=== PATIENT | male | born 1940 | race Caucasian/White ===

== ENCOUNTER 2019-04-18 17:12 | Emergency (ER) | payer OTHER ==
[~2019-04-18] VITALS: Ht 177.8 cm; Wt 108.4 kg
[2019-04-18 21:37] VITALS: BP 115/74
== END 2019-04-18 22:45 | disposition home or self-care (01) ==
LOC: ER 17:35
DX: S41.112A Laceration without foreign body of left upper arm, initial encounter (principal); I48.91 Unspecified atrial fibrillation; E11.9 Type 2 diabetes mellitus without complications; K21.9 Gastro-esophageal reflux disease without esophagitis; E78.5 Hyperlipidemia, unspecified; I10 Essential (primary) hypertension; Z88.8 Allergy status to other drugs, medicaments and biological substances; W20.8XXA Other cause of strike by thrown, projected or falling object, initial encounter; Y93.89 Activity, other specified; Y92.89 Other specified places as the place of occurrence of the external cause; Y99.8 Other external cause status
CPT/HCPCS: 12002

== ENCOUNTER 2019-11-15 10:07 | Inpatient (IN) | payer OTHER ==
[~2019-11-15] VITALS: Ht 188 cm; Wt 102.6 kg
[2019-11-15 10:45] LABS: Basophils # (auto) 0 10 ^3/uL (0-0.2); Basophils % (auto) 0.2 % (0.0-2.0); Eosinophils # (auto) 0 10 ^3/uL (0-0.8); Eosinophils % (auto) 0.4 % (0.0-7.0); Hematocrit 48.6 % (41.0-53.0); Hemoglobin 15.6 g/dL (13.5-17.5); Lymphocytes # (auto) 0.6 10 ^3/uL (0.4-5.4); Lymphocytes % (auto) 5.3 % (10.0-50.0); Mean Corpuscular Hemoglobin 29.1 pg (28.0-32.0); Mean Corpuscular Hgb Conc. 32.1 g/dL (32.0-36.0); Mean Corpuscular Volume 90.6 fL (80.0-100.0); Monocytes # (auto) 0.6 10 ^3/uL (0-1.3); Monocytes % (auto) 5.5 % (0.0-12.0); Neutrophils # (auto) 10.1 10 ^3/uL (1.6-8.6); Neutrophils % (auto) 88.6 % (37.0-80.0); Platelet Count (auto) 184 10^3/uL (140-450); Red Blood Cells 5.37 10^6/uL (4.5-5.90); Red Cell Distribution Width 14.7 % (11.8-14.3); White Blood Cell 11.4 10^3/uL (4.4-10.8)
[2019-11-15 11:02] LABS: INR 1.18 (0.9-1.15); Partial Thromboplastin Time 31.6 sec (23.0-31.2)
[2019-11-15 11:03] LABS: Albumin 3.2 g/dL (3.4-5.0); Anion Gap 7 (5-15); Blood Urea Nitrogen 10 mg/dL (7-18); Calcium 8.5 mg/dL (8.5-10.1); Carbon Dioxide 28 mmol/L (21-32); Chloride 101 mmol/L (98-107); Glucose 114 mg/dL (74-106); Potassium 3.9 mmol/L (3.5-5.1); Sodium 136 mmol/L (136-145)
[2019-11-15 11:11] LABS: Alanine Aminotransferase 14 U/L (16-61); Alkaline Phosphatase 94 U/L (45-117); Aspartate Aminotransferase 11 U/L (15-37); BUN/Creatinine Ratio 12.7; Bilirubin, Total 1.1 mg/dL (0.2-1.0); GFR African American 122 mL/min; GFR Non-African American 101 mL/min; Lactate Dehydrogenase 181 U/L (87-241)
[2019-11-15] MEDS ORDERED: cefTRIAXone 1GM/50ML D5W 50 ML IV ONE (11:30)
[2019-11-15] MEDS ORDERED: FUROSEMIDE 20 MG/2 ML VIAL IV ONE (11:30)
[2019-11-15 12:46] LABS: Urine WBC None Seen /hpf (0 - 3)
[2019-11-15 12:53] LABS: Urine Bacteria FEW /hpf (None Seen); Urine Blood TRACE /uL (Negative); Urine Mucus MODERATE (None Seen)
[2019-11-15] MEDS ORDERED: DEXTROSE (50%) 50ML SYRG IV PRN (13:15)
[2019-11-15] MEDS ORDERED: NITROGLYCERIN 0.4 MG SL TAB SL PRN (13:15)
[2019-11-15] MEDS ORDERED: MORPHINE SULF INJ 2 MG/ML SYRINGE 1ML IV PRN (13:15)
[2019-11-15] MEDS ORDERED: ACETAMINOPHEN 500 MG TAB PO PRN (13:15)
[2019-11-15] MEDS ORDERED: KETOROLAC TROMETH 60MG/2ML VIAL IM PRN (13:15)
[2019-11-15] MEDS ORDERED: LABETALOL HCL 5 MG/ML 4ML SYRINGE IV PRN (13:15)
[2019-11-15] MEDS: SODIUM CHLORIDE 0.9% 1,000 ML IV SCH ×2 (13:35→17:36)
[2019-11-15] MEDS ORDERED: ALBUTEROL SULF HFA 90MCG INH 200DOSE IN SCH (14:00)
--- NOTE | 2019-11-15 15:15 | NUR ---
Telemetry admit from ER RADHA BLOOD admitted to Telemetry unit after SBAR received. Patient oriented to MAGDY WILLIAMSON, primary RN, unit, room, bed, and unit policies regarding patient care and visiting hours. Patient now on continuous telemetry monitoring, tele box # 14 and telemetry reading on arrival to unit is 101 AFIB Patient placed on bedside oxygen 2l weighed by bedscale and encouraged to call if they need something. All questions and concerns addressed, patient verbalized understanding. Bed alarm on.
[2019-11-15] MEDS: ACCU-CHEK COMFORT CURVE STRIP VI SCH ×2 (16:00→21:35)
[2019-11-15] MEDS: InsuLIN REG 1unit/0.01ml Soln (100units/ml) SC SCH ×2 (16:00→21:35)
[2019-11-15] MEDS ORDERED: ACCU-CHEK COMFORT CURVE STRIP VI SCH (16:00)
[2019-11-15] MEDS ORDERED: PANT40T PO (16:27)
[2019-11-15] MEDS ORDERED: SIMV-13 PO (16:27)
[2019-11-15] MEDS ORDERED: FLUO20CA90 PO (16:27)
[2019-11-15] MEDS ORDERED: CEPH250C2 PO (16:27)
[2019-11-15] MEDS ORDERED: ALPR1TAB7 PO (16:27)
[2019-11-15] MEDS ORDERED: DABI1CAP PO (16:27)
[2019-11-15] MEDS ORDERED: TAMS0.4C36 PO (16:27)
[2019-11-15] MEDS ORDERED: MET25T PO (16:31)
--- NOTE | 2019-11-15 16:45 | NUR ---
SPOKE WITH TO GET HISTORY AND MED LIST. PER PATIENT GETS ANXIOUS AND PERINOID AT NIGHT, PATIENT IS NOT COMBATIVE; ALPRAZOLAM EFFECTIVE HS TO CALM PATIENT. PAGED HOSPITALIST FOR ORDERS TO RESUME.
--- NOTE | 2019-11-15 16:47 | NUR ---
HOSPITALIST RETURNED CALL OKAY TO RESUME HOME MEDICATIONS
[2019-11-15 17:00] VITALS: BP 148/93
[2019-11-15] MEDS ORDERED: CEPHALEXIN 250 MG CAP PO ONE (17:00)
[2019-11-15] MEDS: hydrALAZINE HCL 20 MG/ML VL IV SCH (17:36)
--- NOTE | 2019-11-15 19:10 | NUR ---
endorsed care to night rn
--- NOTE | 2019-11-15 20:25 | NUR ---
TRANSFER TO [facility] PT TAKEN TO OUTSIDE ANTE ROOM TO RYAN RN VIA BED ALL BELONGING TAKEN WITH PT.PT IS AOX2 ON ROOM AIR , NO S/S OF DISTRESS OR SOB AND NO INCIDENT DURING TIME OF TRANSFER
--- NOTE | 2019-11-15 20:26 | NUR ---
Patient transfer to room 205. Assumed care of patient, awake but confused, alert to self and situation only. Bed is in lowest position and locked. Call light within reach. Board updated. Tele box matches monitor and leads are in correct placement. No S/S of distress/SOB or pain. Instructed on POC and to call for assist PRN, will continue to monitor for changes Q1hr and PRN.
[2019-11-15 20:40] VITALS: BP 132/78
--- NOTE | 2019-11-15 21:35 | NUR ---
Held Insulin for patient because patient's blood glucose is 133 mg/dl and patient has had poor appetite. Previous result was 131 mg/dl. Will reassess at 0000.
[2019-11-15] MEDS: DOXYCYCLINE 100 MG TAB/CAP PO SCH (21:37)
[2019-11-15] MEDS: ALPRAZolam 0.5 MG TAB PO PRN (21:37)
[2019-11-15 21:40] VITALS: BP 132/78
--- NOTE | 2019-11-15 22:01 | NUR ---
patient's , Galileo, called and I gave her a brief update on patient's status and plan of care after confirming password.
--- NOTE | 2019-11-15 23:59 | NUR ---
Paging hospitalist to notify of increasing Atrial fibrillation rate and home Metoprolol use for atrial fibrillation. Patient takes Metoprolol 25 mg PO Daily at home. Atrial fibrillation on arrival was in high 90s now it is in the high 100s. Patient is asymptomatic, however.
--- NOTE | 2019-11-16 00:42 | NUR ---
Spoke to CAIO Najera and notified him that BP is 109/69 as well. Per CAIO Najera, continue to monitor only.
[2019-11-16] MEDS: ACCU-CHEK COMFORT CURVE STRIP VI SCH ×6 (00:51→23:50)
[2019-11-16] MEDS: hydrALAZINE HCL 20 MG/ML VL IV SCH ×5 (00:51→23:49)
[2019-11-16] MEDS: InsuLIN REG 1unit/0.01ml Soln (100units/ml) SC SCH ×6 (00:51→23:49)
--- NOTE | 2019-11-16 03:20 | NUR ---
Patient pulled out IV and started ripping off his gown and leads, confused regarding where he was. I tried to reorient patient but patient is still restless and pulling. 22 gauge IV catheter placed in left forearm after one attempt. IV secured and wrapped with Tegaderm. Mittens placed on patent's hands to determine pulling on lines and telemetry leads.
[2019-11-16 04:45] VITALS: BP 141/82
[2019-11-16 07:02] LABS: Basophils # (auto) 0 10 ^3/uL (0-0.2); Basophils % (auto) 0.3 % (0.0-2.0); Eosinophils # (auto) 0.2 10 ^3/uL (0-0.8); Eosinophils % (auto) 1.6 % (0.0-7.0); Hematocrit 44.3 % (41.0-53.0); Hemoglobin 14.8 g/dL (13.5-17.5); Lymphocytes # (auto) 0.9 10 ^3/uL (0.4-5.4); Lymphocytes % (auto) 8.3 % (10.0-50.0); Mean Corpuscular Hemoglobin 30.2 pg (28.0-32.0); Mean Corpuscular Hgb Conc. 33.5 g/dL (32.0-36.0); Mean Corpuscular Volume 90.2 fL (80.0-100.0); Monocytes # (auto) 0.9 10 ^3/uL (0-1.3); Monocytes % (auto) 8.1 % (0.0-12.0); Neutrophils # (auto) 8.7 10 ^3/uL (1.6-8.6); Neutrophils % (auto) 81.7 % (37.0-80.0); Nucleated Red Blood Cells % 0.1 %; Platelet Count (auto) 179 10^3/uL (140-450); Red Blood Cells 4.91 10^6/uL (4.5-5.90); Red Cell Distribution Width 14.5 % (11.8-14.3); White Blood Cell 10.6 10^3/uL (4.4-10.8)
[2019-11-16 07:09] LABS: Potassium 3.5 mmol/L (3.5-5.1)
[2019-11-16 07:15] LABS: Albumin 2.7 g/dL (3.4-5.0); BUN/Creatinine Ratio 18.1; Calcium 8.4 mg/dL (8.5-10.1)
[2019-11-16 07:24] LABS: Bilirubin, Total 1.1 mg/dL (0.2-1.0); CRP High Sensitivity 11.1 mg/dL (< 0.3); Total Protein 6.4 g/dL (6.4-8.2)
[2019-11-16 08:45] VITALS: BP 126/61
[2019-11-16] MEDS ORDERED: cefTRIAXone 1GM/50ML D5W 50 ML IV SCH (09:00)
[2019-11-16] MEDS ORDERED: ASCORBIC ACID 1,000 MG TAB PO SCH (10:00)
[2019-11-16] MEDS ORDERED: ZINC SULFATE 220mg CAP or TAB PO SCH (10:00)
[2019-11-16] MEDS ORDERED: CHOLECALCIFEROL (VITD3) 2,000 UNIT CAP PO SCH (10:00)
[2019-11-16] MEDS: DOXYCYCLINE 100 MG TAB/CAP PO SCH (10:00)
[2019-11-16] MEDS ORDERED: levoFLOXacin 500MG 100 ML IV SCH (10:00)
--- NOTE | 2019-11-16 10:18 | NUR ---
Assessment Patient is a 79-year old male who is confused. Assessment was completed with patient Rachael . Per Rachael Prior to admission patient lived home with her and functioned with assistance. Per Rachael she helps patient with his ADLs. Per Rachael patient has a walker, walker with seat and wheelchair for home use. Per Rachael patient does not have home oxygen. Due to patient hospitalization patient Rachael was offered different post discharge plan such as private care givers, [facility] nursing facility and home health. Per Rachael she would like patient to return home with home health service. Informed Rachael she has a right to participate in all discharge planning. Rachael verbalized understanding. Addendum: 11/16/19 at 1018 by CYNTHIA VILLAVICENCIO Amended: Links added.
[2019-11-16] MEDS: PANTOPRAZOLE 40 MG TAB PO SCH (10:58)
[2019-11-16] MEDS: ENOXAPARIN SOD 40 MG/0.4 ML SYRINGE SC SCH (10:58)
[2019-11-16] MEDS: CEPHALEXIN 250 MG CAP PO SCH (10:58)
[2019-11-16] MEDS: FLUoxetine HCL 20 MG CAP PO SCH (10:59)
--- NOTE | 2019-11-16 11:12 | NUR ---
WOUND CARE NOTE: Wound care in to see patient per wound care request regarding " blanchable redness to sacrum, scab to left forearm s/p fall." Bedside nurse took photograph of patient's skin issue upon admission for reference. Patient is 79 years old male with admitting diagnosis of Palpitations, Fever. Patient is resting in bed in Rm. 205. Patient is awake, alert and oriented. He's in no stated pain at this time however mild pain noted upon turning. He needs assistance in turning and repositioning and his Cr score is 16. Skin assessment done with the assistance of patient's nurse, DMITRI Encarnacion. Patient noted with dry scabbed wound to distal L forearm, nurse applied protective Opti foam gentle dressing. Patient's medial sacral,buttocks noted with intact skin with blanchable bright redness consistent with moisture associated dermatitis. Patient is incontinent and wet the care pad. Tammy care given and applied Z Guard cream. Patient tolerated well, repositioned for comfort on his back, redistributed pressure points with pillows. DMITRI Encarnacion at bedside. RECOMMENDATION: Nursing to continue with BID/PRN cleaning and application of Barrier cream to sacral, buttocks per MD order,frequent turning and repositioning schedule as condition permits, redistribute pressure points with pillows, elevate heels on pillows, frequent tammy check/care, keep clean and dry, continue monitoring by wound care while patient is hospitalized. Addendum: 11/16/19 at 1612 by Shireen Rg RN Amended: Links added.
[2019-11-16 13:00] VITALS: BP 117/70
[2019-11-16] MEDS ORDERED: cefTRIAXone 1GM/50ML D5W 50 ML IV ONE (13:15)
[2019-11-16] MEDS ORDERED: AZITHROMYCIN 500MG/ 250ML 250 ML IV ONE (13:15)
--- NOTE | 2019-11-16 14:20 | NUR ---
Braulio MANUEL AT BEDSIDE. INFORMED OF PATIENT STATUS. NO NEW ORDERS RECEIVED.
--- NOTE | 2019-11-16 14:29 | NUR ---
RECIEVED VERBAL CONSENT FROM DMITRI MADRIGAL PRESENT AND SPOKE TO WITNESS.
--- NOTE | 2019-11-16 14:58 | NUR ---
called down to radiology and informed patient is ready for CT studies.
--- NOTE | 2019-11-16 15:20 | NUR ---
Nutrition Consult/assessment Notes please see attached link for complete assessment [employer] needs BW 104 [id number] kcals (20-23 kcal/kgBW), Est Protein needs: 104-114 gms/day (1.0-1.1 gm/kgBW). Will continue to monitor and reassess prn. Addendum: 11/16/19 at [address] Amended: Links added.
[2019-11-16] MEDS ORDERED: IOHEXOL 350 MG/ML 100ML IJ ONE (16:50)
[2019-11-16 17:00] VITALS: BP 145/103
--- NOTE | 2019-11-16 17:00 | NUR ---
PATIENT WHEELED DOWN FOR SCHEDULED CT STUDIES BY CROZE CUTTER. NO S/S DISTRESS NOTED AT THIS TIME.
[2019-11-16] MEDS: TAMSULOSIN HYDROCHLORIDE 0.4 MG CAP PO SCH (17:47)
--- NOTE | 2019-11-16 20:12 | NUR ---
Spoke to patient's , Rachael, and gave an update on plan of care after confirming password.
[2019-11-16] MEDS: METOPROLOL TARTRATE 25 MG TAB PO SCH (21:19)
[2019-11-16] MEDS: ALPRAZolam 0.5 MG TAB PO PRN (21:20)
[2019-11-16 21:54] VITALS: BP 146/78
--- NOTE | 2019-11-16 22:03 | NUR ---
Paged hospitalist to request nausea medication. Patient has not vomited but says that he feels nauseous and cannot eat. Awaiting call back.
--- NOTE | 2019-11-16 22:38 | NUR ---
Spoke to CAIO Najera. Order received: Ondansetron 4 mg IV q 6 hrs PRN nausea/vomiting. Order repeated, verified, and placed.
[2019-11-17] MEDS ORDERED: ONDANSETRON HCL 4 MG/2 ML VIAL IV PRN (02:15)
[2019-11-17] MEDS: MORPHINE SULFATE 4 MG/ML SYR/VIAL IV PRN ×3 (04:04→23:37)
[2019-11-17 05:00] VITALS: BP 128/77
--- NOTE | 2019-11-17 05:45 | NUR ---
Withholding insulin per sliding scale for blood glucose of 134 mg/dl. Patient's has been reporting nausea and has not eaten any substantial meal for the last 12 hours.
[2019-11-17] MEDS: InsuLIN REG 1unit/0.01ml Soln (100units/ml) SC SCH ×3 (05:46→18:00)
[2019-11-17] MEDS: ACCU-CHEK COMFORT CURVE STRIP VI SCH ×3 (05:47→18:00)
[2019-11-17] MEDS: hydrALAZINE HCL 20 MG/ML VL IV SCH ×3 (05:48→18:00)
[2019-11-17 08:00] VITALS: BP 109/63
[2019-11-17] MEDS: cefTRIAXone 1GM/50ML D5W 50 ML IV SCH (08:49)
[2019-11-17 09:00] VITALS: BP 109/63
[2019-11-17] MEDS: PRADAXA 110 MG PO SCH (10:00)
[2019-11-17] MEDS: AZITHROMYCIN 500MG/ 250ML 250 ML IV SCH (10:37)
[2019-11-17] MEDS: FLUoxetine HCL 20 MG CAP PO SCH (10:40)
[2019-11-17] MEDS: PANTOPRAZOLE 40 MG TAB PO SCH (10:41)
[2019-11-17] MEDS: CEPHALEXIN 250 MG CAP PO SCH (10:41)
[2019-11-17] MEDS: ENOXAPARIN SOD 40 MG/0.4 ML SYRINGE SC SCH (10:42)
[2019-11-17] MEDS: METOPROLOL TARTRATE 25 MG TAB PO SCH ×2 (11:08→22:00)
--- NOTE | 2019-11-17 12:00 | NUR ---
HELD SCHEDULED HYDRALAZINE, BP IS 129/64. WILL CONTINUE TO MONITOR FOR CHANGES
--- NOTE | 2019-11-17 12:30 | NUR ---
HELD INSULIN PER SLIDING SCALE FOR BLOOD GLUCOSE OF 176mg/dL. Patient has poor appetite and not consuming adequate amount of meal at this time. will continue to offer snacks and encourage to eat more.
[2019-11-17 12:36] VITALS: BP 129/64
[2019-11-17 16:31] VITALS: BP 122/71
[2019-11-17] MEDS: TAMSULOSIN HYDROCHLORIDE 0.4 MG CAP PO SCH (18:00)
--- NOTE | 2019-11-17 18:58 | NUR ---
pharmacy notified that flomax is not available in xis. Pharmacy staff confirms to review order and make available.
--- NOTE | 2019-11-17 19:02 | NUR ---
Flomax still not available in the pyxis. unable to administer evening dose.
[2019-11-17 22:07] VITALS: BP 151/87
[2019-11-17] MEDS: ALPRAZolam 0.5 MG TAB PO PRN (23:37)
--- NOTE | 2019-11-17 23:57 | NUR ---
1899. REPORT OBTAINED ON PATIENT. 1919 PATIENT SEEN. LYING SUPINE IN BED. AWAKE ALERT AND CONFUSED. SPEECH UNCOORDINATED. REASSURED.
--- NOTE | 2019-11-17 23:59 | NUR ---
2325. PATIENT COMPLAINED OF PAIN. DEMANDED TO DRESS UP AND GO HOME. PATIENT REASSURED AND TOLD IT IS TOO LATE TO GO HOME.. 2337. MEDICATED FOR PAIN. LOW BACK. SLEEPING PILL GIVEN. XANAX.
--- NOTE | 2019-11-18 | NUR ---
0000. MONITORING PATIENT. BEGINNING TO SLEEP.
--- NOTE | 2019-11-18 02:03 | NUR ---
PATIENT NOW AWAKE. ASKING TO GO HOME. WAS REORIENTED IN RESPECT OF TIME AND ORDERS.
[2019-11-18 05:00] VITALS: BP 146/103
[2019-11-18] MEDS: hydrALAZINE HCL 20 MG/ML VL IV SCH ×4 (05:36→18:00)
[2019-11-18] MEDS: ACCU-CHEK COMFORT CURVE STRIP VI SCH ×4 (05:37→18:22)
[2019-11-18] MEDS: InsuLIN REG 1unit/0.01ml Soln (100units/ml) SC SCH ×4 (05:37→18:00)
[2019-11-18] MEDS: MORPHINE SULFATE 4 MG/ML SYR/VIAL IV PRN ×2 (05:45→18:40)
--- NOTE | 2019-11-18 07:40 | NUR ---
RECEIVED PATIENT FROM NOC SHIFT RN, AWAKE, A/O 1-2, APPEARS MORE CONFUSED AND RESTLESS, WANTING TO GET OUT OF BED. DENIES PAIN AT THIS TIME, NO SOB NOTED. PLAN OF CARE DISCUSSED BUT UNCLEAR IF PATIENT UNDERSTANDS. BED IN LOW AND LOCKED POSITION, WILL CONTINUE TO MONITOR Q1HR AND PRN. SITTER AT BEDSIDE
[2019-11-18 08:00] VITALS: BP 122/78
[2019-11-18] MEDS: cefTRIAXone 1GM/50ML D5W 50 ML IV SCH (08:44)
[2019-11-18 09:00] VITALS: BP 122/78
[2019-11-18] MEDS: PRADAXA 110 MG PO SCH (10:00)
--- NOTE | 2019-11-18 10:20 | NUR ---
PRADAXA NOT AVAILABLE, WILL BE BROUGHT IN BY FAMILY LATER. PHARMACY AWARE
[2019-11-18] MEDS: AZITHROMYCIN 500MG/ 250ML 250 ML IV SCH (11:02)
[2019-11-18] MEDS: FLUoxetine HCL 20 MG CAP PO SCH (11:02)
[2019-11-18] MEDS: PANTOPRAZOLE 40 MG TAB PO SCH (11:02)
[2019-11-18] MEDS: ENOXAPARIN SOD 40 MG/0.4 ML SYRINGE SC SCH (11:02)
[2019-11-18] MEDS: METOPROLOL TARTRATE 25 MG TAB PO SCH ×2 (11:17→22:10)
--- NOTE | 2019-11-18 12:30 | NUR ---
HELD HYDRALAZINE. BLOOD PRESSURE IS 111/66, HR 73. PATIENT NOT EATING ADEQUATE AMOUNT OF MEALS.
--- NOTE | 2019-11-18 12:55 | NUR ---
WILL HOLD INSULIN FOR BLOOD GLUCOSE OF 132mg/dL. PATIENT NOT EATING ADEQUATE AMOUNT OF MEAL.
[2019-11-18 13:12] VITALS: BP 111/66
--- NOTE | 2019-11-18 16:20 | NUR ---
FAMILY BROUGHT PRADAXA, IT IS SENT TO PHARMACY.
[2019-11-18 16:45] VITALS: BP 131/85
--- NOTE | 2019-11-18 18:00 | NUR ---
PATIENT STILL EXHIBIT POOR APPETITE, NOT EATING HIS MEALS, EVEN FOOD BROUGHT BY FAMILY. WILL CONTINUE TO ENCOURAGE PATIENT TO EAT.
[2019-11-18] MEDS: TAMSULOSIN HYDROCHLORIDE 0.4 MG CAP PO SCH (18:41)
--- NOTE | 2019-11-18 19:34 | NUR ---
Opening Shift Note Received report and assumed care of patient. Patient is awake and confused. No signs or symptoms of distress noted. Instructed patient on plan of care and to call for assistance as needed. Patient is confused and needs to be reoriented, teaching reinforced. Sitter at bedside. Will continue to monitor.
[2019-11-18 21:03] VITALS: BP 145/80
[2019-11-18] MEDS ORDERED: LORazepam 2MG/ML-1ML VIAL IV PRN (21:15)
[2019-11-18] MEDS ORDERED: MIDAZOLAM HCL 1MG/1ML-2 ML VIAL IV PRN (21:30)
[2019-11-18 21:51] LABS: Cholesterol 139 mg/dL (< 200); HDL Cholesterol 48 mg/dL (40-59); LDL Cholesterol 80 mg/dL (< 100); Triglycerides 97 mg/dL (< 150)
[2019-11-18] MEDS: ATORVASTATIN 20 MG TAB PO SCH (22:09)
[2019-11-19] MEDS: HALOPERIDOL LACTATE 5 MG/ML INJ VIAL IM PRN ×2 (00:45→10:14)
--- NOTE | 2019-11-19 00:45 | NUR ---
Haldol Administered Patient is confused and agitated. Haldol administered at this time. Sitter at bedside. Will continue to monitor.
[2019-11-19] MEDS: hydrALAZINE HCL 20 MG/ML VL IV SCH ×4 (00:47→17:47)
[2019-11-19] MEDS: ACCU-CHEK COMFORT CURVE STRIP VI SCH ×4 (00:47→17:53)
[2019-11-19 05:18] VITALS: BP 155/89
[2019-11-19] MEDS: InsuLIN REG 1unit/0.01ml Soln (100units/ml) SC SCH ×4 (06:00→17:53)
--- NOTE | 2019-11-19 06:00 | NUR ---
Insulin Held Blood sugar 141. Held insulin due to patient's poor appetite. Patient refusing snacks and refuses to eat. Patient does take small sips of water. Will endorse to day shift nurse and will continue to monitor.
[2019-11-19 06:19] LABS: Basophils # (auto) 0.1 10 ^3/uL (0-0.2); Basophils % (auto) 0.5 % (0.0-2.0); Eosinophils # (auto) 0 10 ^3/uL (0-0.8); Eosinophils % (auto) 0.4 % (0.0-7.0); Hematocrit 43.7 % (41.0-53.0); Hemoglobin 14.9 g/dL (13.5-17.5); Lymphocytes # (auto) 0.6 10 ^3/uL (0.4-5.4); Lymphocytes % (auto) 5.5 % (10.0-50.0); Mean Corpuscular Hemoglobin 30.3 pg (28.0-32.0); Mean Corpuscular Hgb Conc. 33.9 g/dL (32.0-36.0); Mean Corpuscular Volume 89.1 fL (80.0-100.0); Monocytes # (auto) 0.9 10 ^3/uL (0-1.3); Monocytes % (auto) 8.6 % (0.0-12.0); Neutrophils # (auto) 8.7 10 ^3/uL (1.6-8.6); Platelet Count (auto) 239 10^3/uL (140-450); Red Blood Cells 4.91 10^6/uL (4.5-5.90); Red Cell Distribution Width 14.3 % (11.8-14.3); White Blood Cell 10.2 10^3/uL (4.4-10.8)
[2019-11-19 06:39] LABS: Calcium 8.4 mg/dL (8.5-10.1); Potassium 3.1 mmol/L (3.5-5.1)
[2019-11-19 06:45] LABS: Albumin 2.7 g/dL (3.4-5.0); BUN/Creatinine Ratio 20.7; Total Protein 6.3 g/dL (6.4-8.2)
--- NOTE | 2019-11-19 07:25 | NUR ---
Opening Shift Note Assumed care of patient, awake and alert x3. No S/S of distress/SOB or pain noted at this time. Instructed on POC and to call for assist PRN, call light within reach, bed alarm on and bed portioned at its lowest position, IV patent to right FA and right upper FA, will continue to monitor for changes Q1hr and PRN.
[2019-11-19 08:00] VITALS: BP 110/57
[2019-11-19 08:45] VITALS: BP 110/57
--- NOTE | 2019-11-19 09:24 | NUR ---
Weekend assistant professor of education-I received a page 11/16 to call patient's -Galileo ([phone])-she told me that originally she had wanted to bring him home upon discharge, but now she wants him to go to rehab prior to coming home (she is also okay with patient being transferred to [place]). I relayed her wishes/concerns to nurse Henao.
[2019-11-19] MEDS: ENOXAPARIN SOD 40 MG/0.4 ML SYRINGE SC SCH (10:13)
[2019-11-19] MEDS: FLUoxetine HCL 20 MG CAP PO SCH (10:13)
[2019-11-19] MEDS: AZITHROMYCIN 500MG/ 250ML 250 ML IV SCH (10:13)
[2019-11-19] MEDS: PANTOPRAZOLE 40 MG TAB PO SCH (10:13)
[2019-11-19] MEDS: cefTRIAXone 1GM/50ML D5W 50 ML IV SCH (10:13)
[2019-11-19 11:56] LABS: Folate (Folic Acid) 2.85 ng/mL (5.38-24)
--- NOTE | 2019-11-19 12:25 | NUR ---
Nutrition Followup Notes Wt: 99.7 kg Pt was sleeping with no family by beside. per records pt with PNA on ABX. pt is currently on CCHO 75 gm with inadequate PO of < 50% x 2 days per RN doc [employer] needs BW 104 [id number] kcals (20-23 kcal/kgBW), Est Protein needs: 104-114 gms/day (1.0-1.1 gm/kgBW). Will continue to monitor and reassess prn. LABS: GLU 115 H ALB 2.7 L CA 8.4 L GI: Pt has no BM reported constipated per RN doc BS: 17 mod risk Refer to wound assessment report for full details. PES: Altered nutrition related lab values r.t current chronic medical condition aeb mod hypoalb, hyperbil Comments: Will continue to monitor PO status, skin status, pertinent labs and weight trends. Will f/u in 3-5 days. Rec: 1) refer to CDE on DC. 2) continue current plan of care
[2019-11-19] MEDS: DABIGATRAN 110 MG PO SCH (12:38)
[2019-11-19] MEDS: METOPROLOL TARTRATE 25 MG TAB PO SCH ×2 (12:43→22:36)
[2019-11-19 12:54] VITALS: BP 142/93
--- NOTE | 2019-11-19 14:00 | NUR ---
Attempted PT treatment but pt states he does not want to get up due to stomach pain. RN aware.
--- NOTE | 2019-11-19 14:00 | NUR ---
ELECTROENCEPHALOGRAM COMPLETED AT BEDSIDE. PRIMARY RN ALICIA CALERO.
--- NOTE | 2019-11-19 15:25 | NUR ---
MRI NOT DONE SPOKE WITH CARO FROM MRI, STATES PATIENT WILL HAVE MRI DONE IN THE MORNING, CONT CARE
[2019-11-19 17:32] VITALS: BP 139/77
[2019-11-19] MEDS: TAMSULOSIN HYDROCHLORIDE 0.4 MG CAP PO SCH (17:49)
--- NOTE | 2019-11-19 18:15 | NUR ---
DRESSING REMOVED SITE IRRIGATED WITH NS, PADDED DRY WIT STERILE GAUZE, PT TOLERATED WELL, 16 WELL APPROXIMATED MAREN NOTED ACROSS TOP ABDOMEN, NO REDNESS, FOUL ODOR OR DRAINAGE NOTED, RIGHT MID ABD 2 WELL APPROXIMATED MAREN, SITE PINK, NO FOUL ODOR OR DRAINAGE NOTED, 20ML OF DARK SEROSANG NOTED AND DRAINED, CONT CARE Addendum: 11/19/19 at 1932 by Rachel Ingram RN WRONG PT
--- NOTE | 2019-11-19 19:00 | NUR ---
PAGED HEALTH AID HOSPITALIST POTASSIUM 3.1, ENDORSED TO NOC SHIFT
[2019-11-19 22:00] VITALS: BP 141/94
[2019-11-19] MEDS: ATORVASTATIN 20 MG TAB PO SCH (22:35)
[2019-11-19] MEDS: DONEPEZIL HYDROCHLORIDE 5 MG TAB PO SCH (22:35)
[2019-11-19] MEDS: ALPRAZolam 0.5 MG TAB PO PRN (22:37)
[2019-11-20] MEDS: ACCU-CHEK COMFORT CURVE STRIP VI SCH ×4 (00:16→17:57)
[2019-11-20 05:00] VITALS: BP 112/75
[2019-11-20] MEDS: InsuLIN REG 1unit/0.01ml Soln (100units/ml) SC SCH ×4 (06:00→17:58)
[2019-11-20] MEDS: hydrALAZINE HCL 20 MG/ML VL IV SCH ×4 (06:11→18:00)
--- NOTE | 2019-11-20 07:38 | NUR ---
Opening Shift Note Received report and assumed care of patient. Patient is sleeping quietly in bed. No signs or symptoms of distress noted. Pt is on room air with even and unlabored respirations. Bed is in lowest position, wheels locked, side rails up x2, and call light is within reach. Sitter at bedside for safety. Will continue to monitor. Q1h and PRN.
[2019-11-20] MEDS: ALPRAZolam 0.5 MG TAB PO PRN (08:55)
[2019-11-20] MEDS: HYDROcodone-ACET 10/325MG TAB PO PRN (08:55)
[2019-11-20] MEDS: cefTRIAXone 1GM/50ML D5W 50 ML IV SCH (08:56)
[2019-11-20] MEDS: PANTOPRAZOLE 40 MG TAB PO SCH (08:56)
[2019-11-20] MEDS: DABIGATRAN 110 MG PO SCH (08:56)
[2019-11-20] MEDS: ENOXAPARIN SOD 40 MG/0.4 ML SYRINGE SC SCH (08:57)
[2019-11-20 09:00] VITALS: BP 121/65
--- NOTE | 2019-11-20 09:00 | NUR ---
PT off unit for MRI Pt transported off unit via w/c for MRI. Pt alert and awake with even and unlabored respirations at time of transfer.
[2019-11-20] MEDS: FLUoxetine HCL 20 MG CAP PO SCH (10:19)
[2019-11-20] MEDS: METOPROLOL TARTRATE 25 MG TAB PO SCH ×2 (10:19→22:00)
--- NOTE | 2019-11-20 10:30 | NUR ---
PT BACK TO UNIT FROM MRI PT RETURNED BACK TO UNIT FROM MRI. PT ALERT AND AWAKE SITTING UP IN BED. PT IS ALERT AND AWAKE WITH NO S/S OF DISTRESS/SOB OR PAIN NOTED. WILL CONTINUE TO MONITOR Q1H AND PRN.
--- NOTE | 2019-11-20 10:58 | NUR ---
PATIENT REFUSED PT. DMITRI PINO WAS NOTIFIED. Addendum: 11/20/19 at 1059 by LEW PORTER PTT Amended: Links added.
[2019-11-20] MEDS: FOLIC ACID 1 MG in D5W 5% 50 ML IV SCH (11:14)
[2019-11-20] MEDS: AZITHROMYCIN 500MG/ 250ML 250 ML IV SCH (11:30)
[2019-11-20 13:00] VITALS: BP 137/75
--- NOTE | 2019-11-20 16:00 | NUR ---
CALLED DR. NORMAN SPOKE WITH DR. NORMAN, INFOMRED HIM OF PTS BOWEL MOVEMENT STATUS, PT C/O HE FEELS CONSTIPATED. NEW ORDER RECEIVED AND CARRIED OUT IN [facility]. WILL CONTINUE TO MONITOR Q1H AND PRN.
[2019-11-20 17:00] VITALS: BP 129/68
[2019-11-20] MEDS ORDERED: LACTULOSE 20Gm/30ML SOLN PO ONE (17:00)
[2019-11-20] MEDS: TAMSULOSIN HYDROCHLORIDE 0.4 MG CAP PO SCH (18:00)
--- NOTE | 2019-11-20 19:40 | NUR ---
Closing Note Patient awake and alert. No S/S of distress/SOB. Care endorsed to Dl BALLESTEROS RN.
--- NOTE | 2019-11-20 19:50 | NUR ---
Opening Shift Note Assumed care of patient, awake, AAOx1 to self. Reoriented patient to time, place and situation. Sitter at bedside. On room air and ambulatory with min assist and walker to toilet. No S/S of distress/SOB or pain. Bed in lowest locked position, side rails up x2, call light within reach. Instructed on POC and to call for assist PRN, will continue to monitor for changes Q1hr and PRN.
[2019-11-20 20:00] VITALS: BP 133/76
[2019-11-20 22:00] VITALS: BP 133/76
[2019-11-20] MEDS: ATORVASTATIN 20 MG TAB PO SCH (22:00)
[2019-11-20] MEDS: DONEPEZIL HYDROCHLORIDE 5 MG TAB PO SCH (22:00)
[2019-11-21] VITALS (7 sets, daily range): BP systolic 114–164; BP diastolic 64–91
[2019-11-21] MEDS: ACCU-CHEK COMFORT CURVE STRIP VI SCH ×4 (00:36→17:08)
[2019-11-21] MEDS: HYDROcodone-ACET 10/325MG TAB PO PRN ×3 (00:40→22:00)
[2019-11-21] MEDS: InsuLIN REG 1unit/0.01ml Soln (100units/ml) SC SCH ×4 (06:00→17:07)
[2019-11-21] MEDS: hydrALAZINE HCL 20 MG/ML VL IV SCH ×4 (06:00→17:47)
--- NOTE | 2019-11-21 08:00 | NUR ---
ASSESSMENT NOTE PT IS ALERT TO SELF, PLACE, CONFUSE ON TIMES AND PERSON, VERY SPECIFIC TO VERBALIS HIS NEEDED, PT IS TALL AND BIG, WITH VERY LARGE SOFT ABDOMEN, ABLE TO AMBULATE WITH THE WALKER WITH MINIMUM ASSIST NEEDED, PAIN 0/10 AT THIS TIME, CALL LIGHT WITHIN REACH
[2019-11-21] MEDS: cefTRIAXone 1GM/50ML D5W 50 ML IV SCH (09:21)
[2019-11-21] MEDS: FLUoxetine HCL 20 MG CAP PO SCH (09:31)
[2019-11-21] MEDS: PANTOPRAZOLE 40 MG TAB PO SCH (09:32)
[2019-11-21] MEDS: AZITHROMYCIN 500MG/ 250ML 250 ML IV SCH (09:32)
[2019-11-21] MEDS: METOPROLOL TARTRATE 25 MG TAB PO SCH ×2 (09:32→21:51)
[2019-11-21] MEDS: ENOXAPARIN SOD 40 MG/0.4 ML SYRINGE SC SCH (09:32)
--- NOTE | 2019-11-21 10:30 | NUR ---
PHYSICAL THERAPY AT BED SIDE AMBULATING PT IN THE HALLWAYS
[2019-11-21] MEDS: FOLIC ACID 1 MG in D5W 5% 50 ML IV SCH (12:16)
[2019-11-21] MEDS: DABIGATRAN 110 MG PO SCH (12:17)
--- NOTE | 2019-11-21 12:54 | NUR ---
FAMILY CALLED TO FOLLOW UP ON HER
--- NOTE | 2019-11-21 15:00 | NUR ---
BM PT ASSISTING TO THE BATHROOM WITH FRONT WHEEL WALKER TO HAVE BM, THEN BACK TO BED, KEPT CLEAN AND DRY, SITTER AT HIS SIDE AT ALL TIMES
--- NOTE | 2019-11-21 16:00 | NUR ---
DELIVERED DINNER TO HER
[2019-11-21] MEDS: TAMSULOSIN HYDROCHLORIDE 0.4 MG CAP PO SCH (17:07)
--- NOTE | 2019-11-21 18:38 | NUR ---
PT CONTINUE STABLE, CONTINUE MONITORING
--- NOTE | 2019-11-21 19:30 | NUR ---
Opening Shift Note Assumed care of patient, awake and alert. No S/S of distress/SOB or pain. Instructed on POC and to callfor assist PRN, will continue to monitor for changes Q1hr and PRN.
[2019-11-21] MEDS: DONEPEZIL HYDROCHLORIDE 5 MG TAB PO SCH (21:51)
[2019-11-21] MEDS: ATORVASTATIN 20 MG TAB PO SCH (21:51)
--- NOTE | 2019-11-21 22:35 | NUR ---
assumed care of this patient
--- NOTE | 2019-11-21 23:30 | NUR ---
transferred pt to 277B.Report given to DMITRI Vazquez
[2019-11-22] MEDS: ACCU-CHEK COMFORT CURVE STRIP VI SCH ×4 (01:24→18:11)
[2019-11-22] MEDS: hydrALAZINE HCL 20 MG/ML VL IV SCH ×4 (01:25→17:36)
[2019-11-22 04:59] VITALS: BP 158/91
[2019-11-22] MEDS: InsuLIN REG 1unit/0.01ml Soln (100units/ml) SC SCH ×4 (06:00→18:00)
--- NOTE | 2019-11-22 08:00 | NUR ---
Morning note Patient resting in bed with even and unlabored respirations, no distress noted. Instructed patient on POC, fall precautions and to call for assistance as needed. Patient verbalized understanding. Fall precautions in place with call light within reach.
[2019-11-22 09:00] VITALS: BP 137/80
[2019-11-22] MEDS: ENOXAPARIN SOD 40 MG/0.4 ML SYRINGE SC SCH (09:13)
[2019-11-22] MEDS: PANTOPRAZOLE 40 MG TAB PO SCH (09:13)
[2019-11-22] MEDS: HYDROcodone-ACET 10/325MG TAB PO PRN ×2 (09:14→19:43)
[2019-11-22] MEDS: FLUoxetine HCL 20 MG CAP PO SCH (09:15)
[2019-11-22] MEDS: DABIGATRAN 110 MG PO SCH (09:15)
[2019-11-22] MEDS: METOPROLOL TARTRATE 25 MG TAB PO SCH ×2 (09:15→21:43)
[2019-11-22] MEDS: cefTRIAXone 1GM/50ML D5W 50 ML IV SCH (09:16)
--- NOTE | 2019-11-22 10:00 | NUR ---
Patient transferred self to chair at bedside Standby assistance provided by staff member. Patient returned to bed with no complications noted.
[2019-11-22] MEDS: AZITHROMYCIN 500MG/ 250ML 250 ML IV SCH (12:34)
--- NOTE | 2019-11-22 12:48 | NUR ---
Nutrition Followup Notes Wt: 101.7 kg Pt was with RN at time of rounds. Pt is awaiting transfer to SNF 11/22 per MD note. Pt appetite improved slightly aeb pt with 60% avg po intake x 2 days per RN note. Consider adding Glucerna 1 carton BID Est Energy needs BW 104 [id number] kcals (20-23 kcal/kgBW), Est Protein needs: 104-114 gms/day (1.0-1.1 gm/kgBW). Will continue to monitor and reassess prn. LABS: Glu 107H, Alb 2.7L, Creat 0.58L, Ca 8.4L GI: Pt with 1 BM reported 11/21 per RN doc BS: 20 low risk Refer to wound assessment report for full details. PES: Altered nutrition related lab values r.t current chronic medical condition aeb mod hypoalb, hyperbil Comments: Will continue to monitor PO status, skin status, pertinent labs and weight trends. Will f/u in 3-5 days. Rec: 1) refer to CDE on DC. 2) continue current plan of care
[2019-11-22 13:00] VITALS: BP 121/80
[2019-11-22] MEDS: TAMSULOSIN HYDROCHLORIDE 0.4 MG CAP PO SCH (17:36)
[2019-11-22] MEDS: FOLIC ACID 1 MG in D5W 5% 50 ML IV SCH (17:36)
--- NOTE | 2019-11-22 17:55 | NUR ---
IV removed IV removed from RWR with aseptic technique, catheter intact. Dressing applied. Patient tolerated well, no trauma to site.
[2019-11-22 18:14] VITALS: BP 141/70
--- NOTE | 2019-11-22 18:18 | NUR ---
Patient's called for an update Password obtained. Update provided. Patient's requesting patient to return home with home health.
--- NOTE | 2019-11-22 18:39 | NUR ---
IV to RAC leaking
--- NOTE | 2019-11-22 18:40 | NUR ---
Closing note Patient resting in bed with even and unlabored respirations, no distress noted. Fall precautions in place with call light within reach.
--- NOTE | 2019-11-22 19:00 | NUR ---
Opening Shift Note Assumed care of patient, awake and alert. No S/S of distress/SOB or pain. Instructed on POC and to call for assist PRN, will continue to monitor for changes Q1hr and PRN.
--- NOTE | 2019-11-22 19:05 | NUR ---
Care endorsed to DMITRI Bell.
[2019-11-22] MEDS: ATORVASTATIN 20 MG TAB PO SCH (21:40)
[2019-11-22] MEDS: DONEPEZIL HYDROCHLORIDE 5 MG TAB PO SCH (21:41)
[2019-11-22 22:00] VITALS: BP 145/88
[2019-11-23] MEDS: hydrALAZINE HCL 20 MG/ML VL IV SCH ×3 (00:29→12:00)
[2019-11-23] MEDS: ACCU-CHEK COMFORT CURVE STRIP VI SCH ×3 (00:34→12:00)
[2019-11-23 05:00] VITALS: BP 143/83
[2019-11-23] MEDS: InsuLIN REG 1unit/0.01ml Soln (100units/ml) SC SCH ×3 (06:00→12:00)
--- NOTE | 2019-11-23 07:30 | NUR ---
Opening Shift Note Assumed care of patient, awake and alert, periods of confusion noted. No S/S of distress/SOB or pain. Instructed on POC and to call for assist PRN, will continue to monitor for changes Q1hr and PRN. Sitter at bedside for safety purposes. Bed is locked and in lowest position. Call light within reach.
[2019-11-23 07:34] LABS: Basophils # (auto) 0.1 10 ^3/uL (0-0.2); Basophils % (auto) 0.7 % (0.0-2.0); Eosinophils # (auto) 0.1 10 ^3/uL (0-0.8); Eosinophils % (auto) 1.3 % (0.0-7.0); Hematocrit 45.1 % (41.0-53.0); Hemoglobin 15.1 g/dL (13.5-17.5); Lymphocytes # (auto) 0.6 10 ^3/uL (0.4-5.4); Lymphocytes % (auto) 5.7 % (10.0-50.0); Mean Corpuscular Hgb Conc. 33.6 g/dL (32.0-36.0); Mean Corpuscular Volume 89.3 fL (80.0-100.0); Monocytes # (auto) 0.8 10 ^3/uL (0-1.3); Monocytes % (auto) 7.4 % (0.0-12.0); Neutrophils # (auto) 9.5 10 ^3/uL (1.6-8.6); Neutrophils % (auto) 84.9 % (37.0-80.0); Nucleated Red Blood Cells % 0.1 %; Platelet Count (auto) 302 10^3/uL (140-450); Red Blood Cells 5.05 10^6/uL (4.5-5.90); Red Cell Distribution Width 14.5 % (11.8-14.3); White Blood Cell 11.1 10^3/uL (4.4-10.8)
[2019-11-23 07:48] LABS: Albumin 2.7 g/dL (3.4-5.0); Calcium 8.1 mg/dL (8.5-10.1)
[2019-11-23 07:54] LABS: BUN/Creatinine Ratio 18.3; Bilirubin, Total 0.7 mg/dL (0.2-1.0)
[2019-11-23 07:56] LABS: Potassium 2.9 mmol/L (3.5-5.1)
--- NOTE | 2019-11-23 08:12 | NUR ---
CRITICAL LAB VALUE OF POTASSIUM RECEIVED OF 2.9. PAGED DR. NORMAN REGARDING CRITICAL POTASSIUM. NEW ORDER OF 60 MEQ POTASSIUM IV ONCE. WILL CONTINUE WITH POC AND NEW ORDERS.
[2019-11-23] MEDS ORDERED: POTASSIUM CHL 20MEQ/100ML 100 ML IV SCH (08:15)
[2019-11-23] MEDS ORDERED: POTASSIUM CHL 20MEQ/100ML 100 ML IV ONE (08:15)
[2019-11-23] MEDS: AZITHROMYCIN 500MG/ 250ML 250 ML IV SCH (10:00)
[2019-11-23] MEDS: DABIGATRAN 110 MG PO SCH (10:00)
[2019-11-23] MEDS: cefTRIAXone 1GM/50ML D5W 50 ML IV SCH (10:20)
--- NOTE | 2019-11-23 10:20 | NUR ---
DR. NORMAN INFORMED REGARDING ONE IV ACCESS AND PATIENT PLAN OF DISCHARGE. ORDER FOR POTASSIUM IV 60 MEQ CHANGED TO ORAL POTASSIUM 40 MEQ. WILL CONTINUE WITH POC AND NEW ORDERS.
[2019-11-23] MEDS: METOPROLOL TARTRATE 25 MG TAB PO SCH (10:23)
[2019-11-23] MEDS: PANTOPRAZOLE 40 MG TAB PO SCH (10:23)
[2019-11-23] MEDS: FLUoxetine HCL 20 MG CAP PO SCH (10:23)
[2019-11-23] MEDS: ENOXAPARIN SOD 40 MG/0.4 ML SYRINGE SC SCH (10:24)
[2019-11-23] MEDS: FOLIC ACID 1 MG in D5W 5% 50 ML IV SCH (10:24)
[2019-11-23] MEDS ORDERED: POTASSIUM CHL 20 Meq TABLET PO ONE (10:30)
--- NOTE | 2019-11-23 11:35 | NUR ---
WOUND CARE NOTE: WOUND CARE IN TO SEE PATIENT FOR REEVALUATION. PATIENT PREVIOUSLY NOTED TO HAVE SKIN TEARS TO LEFT FOREARM. THESE WOUNDS ARE RESOLVED. PATIENT ALSO PREVIOUSLY NOTED TO HAVE REDNESS TO SACRUM. PATIENT CONTINUES TO HAVE REDNESS TO SACRUM. PATIENT MARTHA SCORE IS 18. RECOMMEND: CONTINUE WOUND CARE TO SACRUM PER MD ORDERS. FREQUENT Q2HOUR REPOSITIONING CONDITION PERMITS. CONTINUED MONITORING BY WOUND CARE TEAM. Addendum: 11/23/19 at 1411 by EDWARD GARCIA RN RN Amended: Links added.
--- NOTE | 2019-11-23 12:08 | NUR ---
I faxed home health order to [facility].
--- NOTE | 2019-11-23 12:11 | NUR ---
DR. NORMAN INFORMED REGARDING CONCERN FOR PAIN MEDICATION UPON DISCHARGE. DR. NORMAN WROTE A PRESCRIPTION FOR NORCO 5/325 MG PO TABS. PRESCRIPTION IN CHART WILL BE GIVEN TO PATIENT UPON DISCHARGE.
[2019-11-23] MEDS: ALPRAZolam 0.5 MG TAB PO PRN (12:33)
--- NOTE | 2019-11-23 13:10 | NUR ---
1300 11/23/19 I called [facility] and spoke with lidar analyst Angy-she verified that they did receive the home health order-and that their discharge planning team is working on it. Per Angy she will have someone call me back to give me an update on the home health arrangements.
[2019-11-23 14:13] VITALS: BP 137/83
--- NOTE | 2019-11-23 14:41 | NUR ---
1440 11/23/19 I received a call from [facility] Television Engineer Christine ([phone]) letting me know that home health order is complete and that [facility] will contact patient tomorrow regarding arrangements for first visit. I spoke with nurse Lorna earlier and let her know that patient could be discharged home and that [facility] would contact patient regarding home health.
--- NOTE | 2019-11-23 15:48 | NUR ---
DISCHARGE PATIENT DISCHARGED HOME WITH HOME HEALTH. PATIENT IS A [facility] PATIENT AND [facility] WILL BE SETTING UP FOLLOW UP APPOINTMENTS AND HOME HEALTH PER CERTIFIED MEDICAL CODER DEMETRA. PATIENT DISCHARGE PAPERWORK/PRESCRIPTIONS GIVEN AND SIGNED BY PATIENTS SPOUSE. PATIENT HAS PERIODS OF CONFUSION. PATIENT WAS WHEELED DOWN IN WHEELCHAIR TO PERSONAL VEHICLE WITH NO SIGNS OF DISTRESS. TELEMONITOR NUMBER [id number] REMOVED AND SENT TO ICU HEART ROOM. IV REMOVED FROM LEFT HAND USING STERILE TECHNIQUE. IV CATHETER INTACT WITH NO SIGNS OF INFECTION. APPLIED PRESSURE, GAUZE AND TAPE WITH NO MAJOR SIGNS OF BLEEDING. PATIENT TOLERATED WELL.
== END 2019-11-23 15:41 | disposition home health service (06) | DRG 193 ==
LOC: EDBD 10:07 → ER 10:07 → EAST 14:46 → TELE-CENTR 20:30 → TELE-WESTW 11-21 23:20
PROVIDERS: ADMIT Internal Medicine; ATTEND Family Medicine
DX: J18.9 Pneumonia, unspecified organism (principal); G93.41 Metabolic encephalopathy; J96.00 Acute respiratory failure, unspecified whether with hypoxia or hypercapnia; I50.43 Acute on chronic combined systolic (congestive) and diastolic (congestive) heart failure; M48.54XA Collapsed vertebra, not elsewhere classified, thoracic region, initial encounter for fracture; B37.49 Other urogenital candidiasis; I48.0 Paroxysmal atrial fibrillation; K21.9 Gastro-esophageal reflux disease without esophagitis; F41.9 Anxiety disorder, unspecified; M54.42 Lumbago with sciatica, left side; I27.20 Pulmonary hypertension, unspecified; E11.21 Type 2 diabetes mellitus with diabetic nephropathy; E11.40 Type 2 diabetes mellitus with diabetic neuropathy, unspecified; E53.8 Deficiency of other specified B group vitamins; E78.00 Pure hypercholesterolemia, unspecified; E78.5 Hyperlipidemia, unspecified; M48.061 Spinal stenosis, lumbar region without neurogenic claudication; W18.39XA Other fall on same level, initial encounter; F32.9 Major depressive disorder, single episode, unspecified; I11.0 Hypertensive heart disease with heart failure; Z20.828 Contact with and (suspected) exposure to other viral communicable diseases; Z79.01 Long term (current) use of anticoagulants; Z79.899 Other long term (current) drug therapy; Z79.4 Long term (current) use of insulin; Z83.3 Family history of diabetes mellitus; Z86.73 Personal history of transient ischemic attack (TIA), and cerebral infarction without residual deficits; Z87.11 Personal history of peptic ulcer disease; Y93.89 Activity, other specified; Y92.090 Kitchen in other non-institutional residence as the place of occurrence of the external cause; Y99.8 Other external cause status; F02.80 Dementia in other diseases classified elsewhere, unspecified severity, without behavioral disturbance, psychotic disturbance, mood disturbance, and anxiety; G30.9 Alzheimer's disease, unspecified
CPT/HCPCS: 36415; 70450; 71045; 71275; 72131; 80053; 80061; 81001; 82607; 82728; 82746; 82962; 83605; 83615; 83735; 83880; 84443; 84484; 85025; 85379; 85610; 85730; 86141; 87040; 87070; 87086; 87088; 87426; 87804; 87880; 93005; 93306; 93970; 95819; 97110; 97116; 97163; 97530; G0378; J0696; J1815; J1885; J1956; J2405; J3480; J3490; J7042; J7060